=== PATIENT | female | born 1960 | race Caucasian/White ===

== ENCOUNTER 2019-02-12 12:28 | Emergency (ER) | payer OTHER ==
[~2019-02-12] VITALS: Ht 167.6 cm; Wt 108.9 kg
[2019-02-12] MEDS ORDERED: FORTAMET1000 MG (13:03)
[2019-02-12] MEDS ORDERED: ZESTRIL20 MG (13:03)
[2019-02-12] MEDS ORDERED: FENOFIBRATE145 MG (13:04)
[2019-02-12] MEDS ORDERED: BUDESONIDE0.5 MG/2 M (13:07)
[2019-02-12] MEDS ORDERED: ALBUTEROL2.5 MG/3 M (13:07)
== END 2019-02-12 19:58 | disposition home or self-care (01) ==
LOC: ER 12:28
DX: J45.909 Unspecified asthma, uncomplicated (principal)